=== PATIENT | female | born 1975 | race African-American/Black ===

== ENCOUNTER 2024-09-23 10:17 | Emergency (ER) | payer BC, OTHER ==
[~2024-09-23] VITALS: Ht 170.2 cm; Wt 75.0 kg
[2024-09-23 10:19] VITALS: O2SAT 100
[2024-09-23 11:23] LABS: BASOPHILS % 1.4 % (0.0-2.0); HEMATOCRIT. 38.7 % (36.0-48.0); HEMOGLOBIN. 12.8 g/dL (12.0-16.0); LYMPHOCYTES % 49.4 % (20.0-50.0); MEAN CORPUSCULAR HGB CONC 33.2 g/dL (31.0-37.0); MEAN CORPUSCULAR VOLUME 93.3 fL (81.0-99.0); MEAN PLATELET VOLUME 8.4 fl (7.4-10.4); MONOCYTES % 9.1 % (2.0-8.0); NEUTROPHILS % 38.1 % (40.0-76.0); PLATELET 246 x1000/uL (130-400); RED BLOOD CELL COUNT 4.14 mill/uL (4.2-5.4); RED CELL DISTRIBUTION WIDTH 18.7 % (11.6-14.6); WHITE BLOOD COUNT 5.3 x1000/uL (4.5-11.0)
[2024-09-23 11:31] LABS: CHLORIDE 107 mEq/L (98-107); POTASSIUM 4.5 mEq/L (3.5-5.1); SODIUM 136 mEq/L (136-145)
[2024-09-23 11:33] LABS: CALCIUM 9.3 mg/dL (8.7-10.4); CARBON DIOXIDE 25 mEq/L (21-32)
[2024-09-23 11:38] LABS: CREATININE 0.9 mg/dL (0.6-1.0); GLUCOSE 91 mg/dL (70-105); UREA NITROGEN BLOOD 9 mg/dL (9-23)
[2024-09-23 11:39] LABS: TROPONIN I HIGH SENSITIVITY 7 ng/L (3.0-34)
[2024-09-23] MEDS: CLONIDINE 0.1MG TABLET PO NR (13:45)
[2024-09-23 14:02] LABS: TROPONIN I HIGH SENSITIVITY 8 ng/L (3.0-34)
[2024-09-23] MEDS: HYDRALAZINE 20MG/ML VIAL IV ONE (14:57)
[2024-09-23] MEDS ORDERED: HYDR25TA MT (15:26)
[2024-09-23] MEDS ORDERED: MONT-46 MT (15:26)
[2024-09-23] MEDS ORDERED: LISI10TA26 MT (15:26)
[2024-09-23] MEDS ORDERED: ATOR10TA69 MT (15:26)
[2024-09-23 15:50] VITALS: BP 185/88; PULSE 68; RESP 17; TEMP 37.05852; O2SAT 99
== END 2024-09-23 15:55 | disposition home or self-care (01) ==
LOC: ER 10:17 → CANBEDREQ 15:50 → ER 15:55
DX: I16.0 Hypertensive urgency (principal); E78.00 Pure hypercholesterolemia, unspecified; J45.909 Unspecified asthma, uncomplicated; I10 Essential (primary) hypertension; Z79.899 Other long term (current) drug therapy
CPT/HCPCS: 80048; 83880; 85025; 84484; 36415; 71045; 93005; 96374; 99285; J0360; A4663; Z7610; A4606